=== PATIENT | male | born 1940 | race Hispanic/Latino ===

== ENCOUNTER 2018-10-05 16:57 | Emergency (ER) | payer MEDICARE ==
[~2018-10-05] VITALS: Ht 165.1 cm; Wt 90.7 kg
[2018-10-05] MEDS ORDERED: AVODART0.5 MG PO (17:14)
[2018-10-05] MEDS ORDERED: LOVASTATIN20 MG PO (17:14)
[2018-10-05] MEDS ORDERED: CILOSTAZOL100 MG PO (17:14)
[2018-10-05] MEDS ORDERED: NAPROXEN250 MG PO (17:14)
[2018-10-05] MEDS ORDERED: VASOTEC5 MG PO (17:14)
[2018-10-05] MEDS ORDERED: FLOMAX0.4 MG PO (17:14)
[2018-10-05] MEDS ORDERED: CEFTRIAXONE SOD 1 GM/NS 50 ML 50 ML IV ONE ×2 (17:30→17:32)
[2018-10-05] MEDS ORDERED: SODIUM CHLORIDE 0.9% 1000ML 1,000 ML IV SCH (17:30)
[2018-10-05] MEDS ORDERED: SODIUM CHLORIDE 0.9% 1000ML 1,000 ML ONE (17:32)
[2018-10-05 17:48] LABS: BASOPHILS % 0.5 % (0.0-1.0); EOSINOPHILS # (AUTO) 0.1 (0.0-0.4); EOSINOPHILS % 2.1 % (0.0-6.0); HEMATOCRIT 38.9 % (38.2-49.6); HEMOGLOBIN 13.2 g/dL (14.0-18.0); LYMPHOCYTES # (AUTO) 1.4 (1.0-3.2); LYMPHOCYTES % 20.8 % (18.0-39.1); MEAN CORPUSCULAR HEMOGLOBIN 28.9 pg (28-32); MEAN CORPUSCULAR HGB CONC 33.9 g/dL (31-35); MEAN CORPUSCULAR VOLUME 85.3 fL (81-99); MONOCYTES # (AUTO) 0.5 (0.2-0.8); MONOCYTES % 7.3 % (4.4-11.3); NEUTROPHILS # (AUTO) 4.6 (2.1-6.9); PLATELET COUNT 255 x10e3/uL (140-360); RED BLOOD COUNT 4.56 x10e6/uL (4.3-5.7); RED CELL DISTRIBUTION WIDTH 13.2 % (11.7-14.4)
[2018-10-05 17:54] LABS: BILIRUBIN,URINE NEGATIVE (NEGATIVE); CLARITY,URINE SL CLOUDY (CLEAR); COLOR,URINE YELLOW (YELLOW); KETONES,URINE NEGATIVE (NEGATIVE); LEUKOCYTE ESTERASE ,URINE NEGATIVE (NEGATIVE); NITRITE,URINE NEGATIVE (NEGATIVE); URINE UROBILINOGEN 0.2 mg/dL (0.2 - 1)
[2018-10-05] MEDS ORDERED: CIPROFLOXACIN500 MG PO (17:59)
[2018-10-05 18:01] LABS: ALBUMIN 3.6 g/dL (3.5-5.0); ALBUMIN/GLOBULIN RATIO 1.2 (0.8-2.0); CALCIUM 9.2 mg/dL (8.4-10.2); CREATININE, SERUM 1.24 mg/dL (0.72-1.25)
[2018-10-05 18:05] LABS: PROTEIN,URINE DIPSTICK 3+ (NEGATIVE)
[2018-10-05] MEDS ORDERED: METFORMIN HCL500 MG PO (18:26)
[2018-10-05] MEDS ORDERED: GLIMEPIRIDE4 MG PO (18:26)
[2018-10-05 18:31] LABS: BACTERIA,URINE FEW /HPF; EPITHELIAL CELLS,URINE FEW /LPF; RBC,URINE >50 /HPF (0-5); WBC,URINE (MAN) 0-5 /HPF (0-5)
[2018-10-05 18:36] VITALS: BP 118/75
== END 2018-10-05 18:46 | disposition home or self-care (01) ==
LOC: ER 16:57
DX: R30.0 Dysuria (principal); R31.9 Hematuria, unspecified; N41.0 Acute prostatitis; N41.9 Inflammatory disease of prostate, unspecified; E11.9 Type 2 diabetes mellitus without complications
CPT/HCPCS: 36415; 80053; 81001; 85025; 87086; 93005; 99283; J0696; J7030

== ENCOUNTER 2018-11-14 23:14 | Emergency (ER) | payer MEDICARE ==
[~2018-11-14] VITALS: Ht 165.1 cm; Wt 90.7 kg
[~2018-11-14 23:14] MED LIST: AVODART0.5 MG PO; CILOSTAZOL100 MG PO; CIPROFLOXACIN500 MG PO; FLOMAX0.4 MG PO; GLIMEPIRIDE4 MG PO; LOVASTATIN20 MG PO; METFORMIN HCL500 MG PO; NAPROXEN250 MG PO; VASOTEC5 MG PO
[2018-11-15 00:33] LABS: BILIRUBIN,URINE NEGATIVE (NEGATIVE); CLARITY,URINE CLOUDY (CLEAR); COLOR,URINE RED (YELLOW); KETONES,URINE NEGATIVE (NEGATIVE); LEUKOCYTE ESTERASE ,URINE TRACE (NEGATIVE); NITRITE,URINE POSITIVE (NEGATIVE); URINE UROBILINOGEN 1 mg/dL (0.2 - 1)
--- NOTE | 2018-11-15 00:37 | NUR ---
BLADDER SCAN PERFORMED, NO RETENTION FOUND, DR MATTSON NOTIFIED
[2018-11-15 00:41] LABS: BASOPHILS % 0.3 % (0.0-1.0); EOSINOPHILS # (AUTO) 0.2 (0.0-0.4); HEMATOCRIT 39.1 % (38.2-49.6); HEMOGLOBIN 13.1 g/dL (14.0-18.0); LYMPHOCYTES # (AUTO) 1.2 (1.0-3.2); LYMPHOCYTES % 17.1 % (18.0-39.1); MEAN CORPUSCULAR HEMOGLOBIN 29.1 pg (28-32); MEAN CORPUSCULAR HGB CONC 33.5 g/dL (31-35); MEAN CORPUSCULAR VOLUME 86.9 fL (81-99); MONOCYTES # (AUTO) 0.6 (0.2-0.8); NEUTROPHILS # (AUTO) 4.9 (2.1-6.9); NEUTROPHILS % 70.3 % (38.7-80.0); PLATELET COUNT 248 x10e3/uL (140-360); RED CELL DISTRIBUTION WIDTH 13.2 % (11.7-14.4)
[2018-11-15 00:43] LABS: PROTEIN,URINE DIPSTICK 3+ (NEGATIVE)
[2018-11-15 00:52] LABS: WBC,URINE (MAN) >50 /HPF (0-5)
[2018-11-15 00:53] LABS: BACTERIA,URINE MODERATE /HPF; EPITHELIAL CELLS,URINE FEW /LPF; RBC,URINE >50 /HPF (0-5)
[2018-11-15] MEDS ORDERED: CEFTRIAXONE SOD 1 GM/NS 50 ML 50 ML IV ONE (01:15)
[2018-11-15 01:19] LABS: ANION GAP 13.5 mmol/L (8-16); CALCIUM 9.5 mg/dL (8.4-10.2); CREATININE, SERUM 1.44 mg/dL (0.72-1.25); POTASSIUM 4.5 mmol/L (3.5-5.1)
== END 2018-11-15 01:49 | disposition home or self-care (01) ==
LOC: ER 23:14
DX: N30.91 Cystitis, unspecified with hematuria (principal); E11.9 Type 2 diabetes mellitus without complications; N40.0 Benign prostatic hyperplasia without lower urinary tract symptoms; Z79.84 Long term (current) use of oral hypoglycemic drugs
CPT/HCPCS: 36415; 80048; 81001; 85025; 87086; 99283; J0696

== ENCOUNTER 2018-12-13 18:59 | Emergency (ER) | payer MEDICARE ==
[~2018-12-13] VITALS: Ht 165.1 cm; Wt 90.7 kg
== END 2018-12-13 19:50 | disposition home or self-care (01) ==
LOC: ER 18:59
DX: R30.0 Dysuria (principal); E11.9 Type 2 diabetes mellitus without complications
CPT/HCPCS: 87086; 87186; 99282

== ENCOUNTER → 2018-12-29 | Day surgery (SDC) | payer MEDICARE ==
[~2018-12-29] MED LIST changes: +ASPIRIN81 MG PO; +B&O 60MG R/S 60 MG SUPP PR ONE; +CEFTRIAXONE SOD 1 GM/NS 50 ML 50 ML IV ONE; +DEXAMETHASONE SOD PHOS INJ 4 MG/ML VIAL ONE; +FENTANYL CITRATE/PF 100MCG/2 ML INJ ONE; +GENTAMICIN 80MG/NS 100 ML 100 ML IV ONE; +IOPAMIDOL 300MG/ML 50ML INFUS..BTL IV ONE; +LASIX20 MG PO; +LIDOCAINE HCL 2% LOCAL INJ 5 ML SDV VIAL INJ ONE; +ONDANSETRON HCL INJ 2MG/ML 2ML 2 MG/ML VIAL ONE; +PHENYLEPHRINE HCL 1% 10 MG/ML VIAL ONE; +PROPOFOL IV EMULSION 10 MG/ML 20 ML VIAL ONE; +SEVOFLURANE INHAL SOLN 250 ML PEN BTL ONE
[2018-12-29 13:09] LABS: BASOPHILS % 0.3 % (0.0-1.0); EOSINOPHILS # (AUTO) 0.1 (0.0-0.4); HEMATOCRIT 41.2 % (38.2-49.6); HEMOGLOBIN 14.2 g/dL (14.0-18.0); LYMPHOCYTES # (AUTO) 1.5 (1.0-3.2); LYMPHOCYTES % 24.1 % (18.0-39.1); MEAN CORPUSCULAR HEMOGLOBIN 29.6 pg (28-32); MEAN CORPUSCULAR HGB CONC 34.5 g/dL (31-35); MEAN CORPUSCULAR VOLUME 85.8 fL (81-99); MONOCYTES # (AUTO) 0.4 (0.2-0.8); MONOCYTES % 6.6 % (4.4-11.3); NEUTROPHILS # (AUTO) 4.1 (2.1-6.9); NEUTROPHILS % 67.7 % (38.7-80.0); PLATELET COUNT 248 x10e3/uL (140-360); RED CELL DISTRIBUTION WIDTH 13.7 % (11.7-14.4)
[2018-12-29 13:26] LABS: ANION GAP 13.1 mmol/L (8-16); BLOOD UREA NITROGEN 18 mg/dL (7-26); BUN/CREATININE RATIO 16 (6-25); CALCIUM 9.6 mg/dL (8.4-10.2); CARBON DIOXIDE 26 mmol/L (22-29); CHLORIDE 103 mmol/L (98-107); CREATININE, SERUM 1.11 mg/dL (0.72-1.25); EST GLOMERULAR FILTRATION RATE > 60 ML/MIN (60-); GLUCOSE 120 mg/dL (74-118); POTASSIUM 4.1 mmol/L (3.5-5.1); SODIUM 138 mmol/L (136-145)
[2018-12-29 17:40] VITALS: BP 149/76
--- NOTE | 2019-03-08 22:27 | Operative Report ---
DATE OF PROCEDURE: 12/29/2018 SURGEON: Leighton Oneill MD PREOPERATIVE DIAGNOSES: 1. Urinary tract infections. 2. Extensive cystolithiasis. POSTOPERATIVE DIAGNOSES: 1. Urinary tract infections. 2. Extensive cystolithiasis. OPERATIONS PERFORMED: 1. Cystourethroscopy with bilateral ureteral catheterization and retrograde ureteropyelography (separate procedure performed for the urinary tract infections). 2. Interpretation of retrograde ureteropyelography. 3. Supervision of fluoroscopy, no radiologist present. 4. Extensive cystolitholapaxy for a large amount of bladder stones well over 5 cm in total diameter. ANESTHESIA: General. COMPLICATIONS: None. CLINICAL SUMMARY: Blu Garcia is a 78-year-old man with recurrent urinary tract infections. Upon workup, he was found to have extensive cystolithiasis. He is brought to the operating room for the above procedures. He is aware of the risks of bleeding, infection, injury to adjacent structures, need for additional procedures and elected to proceed. OPERATIVE PROCEDURE IN DETAIL: Informed consent was verified. Blu Garcia was properly identified, taken to the operating room, placed on the cystoscopy table in supine position. Anesthesia was uneventfully begun. The patient was then carefully and gently repositioned in dorsal lithotomy position with all pressure points well padded. His genitalia were prepared and draped in usual sterile fashion. The 22.5-Upper Sorbian cystourethroscope continuous irrigation laser sheath with the visual obturator in place was atraumatically inserted in the patient's urethra. It was guided down the unremarkable urethra through the normal sphincteric region through the prostate bed, which was significant for extensive visually obstructing BPH, and into the patient's bladder where there were a dozen large stones throughout the bladder. There were no suspicious lesions. There were no tumors. There was some erythema noted in the bladder wall as one would expect with all this foreign body occupation. An 8-Upper Sorbian catheter was used to cannulate each ureter and retrograde ureteral pyelograms were performed. Interpretation of retrograde ureteropyelography: Contrast was instilled in retrograde fashion bilaterally. There were no tumors. No upper tract stones. No suspicious lesions. There was ureteral tortuosity present bilaterally. There was severe J hooking present bilaterally. Numerous filling defects were noted in the bladder as a result of the cystolithiasis. Interpretation of cystography: Contrast was instilled in retrograde fashion via the cystoscope. The bladder wall was trabeculated. There were numerous filling defects within the bladder, which corresponded to the stones. The bladder was cephalad to the symphysis pubis to a larger extent than normally would be expected due to the patient's large prostate pushing the bladder in cephalad direction care. The 1000 micron fiber was utilized to laser the stones. Extensive lasering was performed until all the stones were smaller size. These stone fragments were then evacuated out of the bladder. This was a rather extensive procedure for massive stone burden. Once all stone material was cleared, only fine sand remained and it should be passable. The cystoscope was withdrawn. Chris catheter was placed. A belladonna and opium suppository were placed revealing a large prostate that is smooth, nonfluctuant without any nodules. The patient was then uneventfully reversed from anesthesia and taken to recovery room in stable condition. There were no complications to the procedure. He tolerated the procedure well. Plans will be to return the patient to the operating room for transurethral resection of the prostate. Leighton Oneill MD [facility] /[id number] cc: Ed Cormier MD
== END | disposition home or self-care (01) ==
LOC: OR 12:13
PROVIDERS: ATTEND Urology
DX: N21.0 Calculus in bladder (principal); N39.0 Urinary tract infection, site not specified; N40.1 Benign prostatic hyperplasia with lower urinary tract symptoms; N13.8 Other obstructive and reflux uropathy; R39.14 Feeling of incomplete bladder emptying; R35.1 Nocturia; R39.12 Poor urinary stream; N28.1 Cyst of kidney, acquired; N41.1 Chronic prostatitis; I86.1 Scrotal varices; N43.3 Hydrocele, unspecified; E11.22 Type 2 diabetes mellitus with diabetic chronic kidney disease; I12.9 Hypertensive chronic kidney disease with stage 1 through stage 4 chronic kidney disease, or unspecified chronic kidney disease; N18.9 Chronic kidney disease, unspecified; E66.9 Obesity, unspecified; R80.9 Proteinuria, unspecified; I25.10 Atherosclerotic heart disease of native coronary artery without angina pectoris; K21.9 Gastro-esophageal reflux disease without esophagitis; Z79.84 Long term (current) use of oral hypoglycemic drugs; Z79.82 Long term (current) use of aspirin; Z68.30 Body mass index [BMI] 30.0-30.9, adult
CPT/HCPCS: 36415; 52005; 52318; 74420; 80048; 82948; 85025; 88300; C1758; J0696; J1100; J1580; J2001; J2370; J2405; J2704; J3010; Q9967

== ENCOUNTER 2019-12-30 08:31 | Inpatient (IN) | payer MEDICARE ==
[2019-12-25 17:34] LABS: BASOPHILS % 0.4 % (0.0-1.0); EOSINOPHILS # (AUTO) 0.1 (0.0-0.4); EOSINOPHILS % 1.3 % (0.0-6.0); HEMATOCRIT 38.4 % (38.2-49.6); LYMPHOCYTES % 25.2 % (18.0-39.1); MEAN CORPUSCULAR HEMOGLOBIN 29.4 pg (28-32); MEAN CORPUSCULAR HGB CONC 33.9 g/dL (31-35); MEAN CORPUSCULAR VOLUME 86.9 fL (81-99); MONOCYTES # (AUTO) 0.6 (0.2-0.8); MONOCYTES % 7.5 % (4.4-11.3); NEUTROPHILS # (AUTO) 5.2 (2.1-6.9); NEUTROPHILS % 65.2 % (38.7-80.0); PLATELET COUNT 250 x10e3/uL (140-360); RED BLOOD COUNT 4.42 x10e6/uL (4.3-5.7); RED CELL DISTRIBUTION WIDTH 13.6 % (11.7-14.4)
[2019-12-25 17:51] LABS: CALCIUM 9.2 mg/dL (8.4-10.2); CREATININE, SERUM 1.36 mg/dL (0.72-1.25)
--- NOTE | 2019-12-25 17:53 | Diagnostic Imaging Report ---
EXAMINATION: CHEST 2 VIEWS INDICATION: PRE OP COMPARISON: None FINDINGS: TUBES and LINES: None. LUNGS: Lungs are mildly hyperinflated. Bibasilar atelectasis. There is no evidence of pneumonia or pulmonary edema. PLEURA: No pleural effusion or pneumothorax. HEART AND MEDIASTINUM: The cardiomediastinal silhouette is unremarkable. BONES AND SOFT TISSUES: No acute osseous lesion. Soft tissues are unremarkable. UPPER ABDOMEN: No free air under the diaphragm. IMPRESSION: Mild bilateral hyperinflation may represent COPD. No acute thoracic abnormality. Signed by: Dr. Ryland Huitron M.D. on 12/25/2019 5:50 PM
[~2019-12-30] VITALS: Ht 170.2 cm; Wt 74.8 kg
[~2019-12-30 08:31] MED LIST changes: -B&O 60MG R/S 60 MG SUPP PR ONE; -CEFTRIAXONE SOD 1 GM/NS 50 ML 50 ML IV ONE; -DEXAMETHASONE SOD PHOS INJ 4 MG/ML VIAL ONE; -FENTANYL CITRATE/PF 100MCG/2 ML INJ ONE; -GENTAMICIN 80MG/NS 100 ML 100 ML IV ONE; +GLIMEPIRIDE2 MG PO; +GLIPIZIDE5 MG PO; -IOPAMIDOL 300MG/ML 50ML INFUS..BTL IV ONE; -LIDOCAINE HCL 2% LOCAL INJ 5 ML SDV VIAL INJ ONE; -ONDANSETRON HCL INJ 2MG/ML 2ML 2 MG/ML VIAL ONE; -PHENYLEPHRINE HCL 1% 10 MG/ML VIAL ONE; -PROPOFOL IV EMULSION 10 MG/ML 20 ML VIAL ONE; -SEVOFLURANE INHAL SOLN 250 ML PEN BTL ONE; +[UNRECOGNIZED DRUG - REMARK] PO
[2019-12-30] MEDS ORDERED: CEFTRIAXONE SOD 1 GM/NS 50 ML 50 ML IV ONE (08:46)
[2019-12-30] MEDS ORDERED: GENTAMICIN 80MG/NS 100 ML 200 ML IV ONE (08:47)
[2019-12-30] MEDS ORDERED: SODIUM CHLORIDE 0.9% 1000ML 1,000 ML ONE (08:50)
[2019-12-30] MEDS ORDERED: FINASTERIDE5 MG PO (09:10)
[2019-12-30] MEDS ORDERED: FLOMAX0.4 MG PO (09:10)
[2019-12-30] MEDS ORDERED: ASPIRIN ENTERI325 MG PO (09:10)
[2019-12-30] MEDS ORDERED: GLIMEPIRIDE2 MG PO (09:10)
[2019-12-30] MEDS ORDERED: CILOSTAZOL100 MG PO (09:10)
[2019-12-30] MEDS ORDERED: ASPIRIN EC81 MG PO (09:10)
[2019-12-30] MEDS ORDERED: B&O 60MG R/S 60 MG SUPP PR ONE (10:30)
[2019-12-30] MEDS ORDERED: IOPAMIDOL 300MG/ML 50ML INFUS..BTL IV ONE (10:30)
[2019-12-30] MEDS ORDERED: PHENAZOPYRIDINE HCL 100 MG TAB PO PRN (11:30)
[2019-12-30] MEDS ORDERED: B&O 60MG R/S 60 MG SUPP PR PRN (11:30)
[2019-12-30] MEDS ORDERED: ONDANSETRON HCL INJ 2MG/ML 2ML 2 MG/ML VIAL IV PRN (11:30)
[2019-12-30] MEDS ORDERED: ACETAMINOPHEN/CODEINE 300MG - 30MG TAB PO PRN (11:30)
[2019-12-30] MEDS ORDERED: DIPHENHYDRAMINE HCL 25 MG CAP PO PRN (11:30)
[2019-12-30] MEDS ORDERED: PROPOFOL IV EMULSION 10 MG/ML 20 ML VIAL ONE (13:08)
[2019-12-30] MEDS ORDERED: EPHEDRINE SULFATE INJ 50 MG/ML VIAL ONE (13:08)
[2019-12-30] MEDS ORDERED: ONDANSETRON HCL INJ 2MG/ML 2ML 2 MG/ML VIAL ONE (13:08)
[2019-12-30] MEDS ORDERED: DEXAMETHASONE SOD PHOS INJ 4 MG/ML VIAL ONE (13:08)
[2019-12-30] MEDS ORDERED: SEVOFLURANE INHAL SOLN 250 ML PEN BTL ONE (13:08)
[2019-12-30] MEDS ORDERED: LIDOCAINE HCL 2% LOCAL INJ 5 ML SDV VIAL INJ ONE (13:08)
[2019-12-30] MEDS ORDERED: MIDAZOLAM HCL 2 MG/2 ML VIAL ONE (13:20)
[2019-12-30] MEDS ORDERED: FENTANYL CITRATE/PF 100MCG/2 ML INJ ONE (13:20)
--- OUTSIDE RECORDS SUMMARY | 2019-12-30 14:10 | XMS REPORT | Continuity of Care Document ---
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 Allergies, Adverse Reactions, Alerts This patient has no known allergies or adverse reactions. Medications Ordered Medication Name Filled Medication Name Start Date Stop Da te Current Medication? Ordering Clinician Indication Dosage Frequency Signature (SIG) Comments Components Source Cilostazol 100 Mg Tablet Cilostazol 100 Mg Tablet Yes 100 Twice A Day [facility] Ciprofloxacin Hcl 500 Mg Tablet Ciprofloxacin Hcl 500 Mg Tablet Yes 500 Twice A Day [facility] Dutasteride (Avodart) 0.5 Mg Capsule Dutasteride (Avodart) 0.5 Mg C apsule Yes .5 Daily [facility] Enalapril Maleate (Vasotec) 5 Mg Tab Enalapril Maleate (Vasotec) 5 Mg Tab Yes 5 Daily [facility] Glimepiride 4 Mg Tablet Glimepiride 4 Mg Tablet Yes 4 Twice A Day [facility] Lovastatin 20 Mg Tablet Lovastatin 20 Mg Tablet Yes 20 Bedtime [facility] Metformin Hcl 500 Mg Tablet Metformin Hcl 500 Mg Tablet Yes [address] [facility] Naproxen 250 Mg Tablet Naproxen 250 Mg Tablet Yes 250 Every 4 Hours [facility] Tamsulosin Hcl (Flomax*) 0.4 Mg Cap Tamsulosin Hcl (Flomax*) 0.4 Mg C ap Yes .4 Daily [facility] Procedures This patient has no known procedures. Encounters Start Date/Time End Date/Time Encounter Type Ad[facility] Encounter ID Source 2018-12-13 18:59:00 2018-12-13 19:50:00 Departed Emergency Room [facility] [id number] [facility] 2018-11-14 23:14:00 2018-11-15 01:49:00 Departed Emergency Room [facility] [id number] [facility] 2018-10-05 16:57:00 2018-10-05 18:46:00 Departed Emergency Room [facility] [id number] [facility] Results Test Description Test Time Test Comments Results Result Comments Source CHEST 2 VIEWS 2019-12-25 17:49:00 [place] [address] Patient Name: YIFAN YAP MR #: [id number] : 1940 Age/Sex: 79/M Req #: [id number] Adm Physician: Ordered by: BEV BRYANT MD Report #: [id number] Location: OR Room/Bed: Procedure: [id number] DX/CHEST 2 VIEWS Exam Date: Exam Time: REPORT STATUS: Signed EXAMINATION: CHEST 2 VIEWS INDICATION: PRE OP COMPARISON: None FINDINGS: TUBES and LINES: None. LUNGS: Lungs are mildly hyperinflated. Bibasilar atelectasis. There is no evidence of pneumonia or pulmonary edema. PLEURA: No pleural effusion or pneumothorax. HEART AND MEDIASTINUM: The cardiomediastinal silhouette is unremarkable. BONES AND SOFT TISSUES: No acute osseous lesion. Soft tissues are unremarkable. UPPER ABDOMEN: No free air under the diaphragm. IMPRESSION: Mild bilateral hyperinflation may represent COPD. No acute thoracic abnormality. Signed by: Dr. Ryland Fong M.D. on 12/25/2019 5:50 PM Dictated By: ADRIANNA FONG MD, MD 48 Transcribed By: ABENA on 12/25/191749 COPY TO: BEV BRYANT MD Sodium Level 2018-11-15 01:26:00 Test Item Sodium Level (test code = 2951-2) 139 136-145 [facility] Wttxz7048-07-82 01:26:00* Test Item Value Reference Range Interpretation Comments Potassium Level (test code = 2823-3) 4.5 3.5-5.1 [facility] TexasChloride Hfqzt6652-24-26 01:26:00* Test Item Value Reference Range Interpretation Comments Chloride Level (test code = 2075-0) 104 98-107 [facility] TexasCarbon Dioxide Ykjee6053-08-92 01:26:00* Test Item Value Reference Range Interpretation Comments Carbon Dioxide Level (test code = 2028-9) 26 22-29 [facility] TexasAnion Obf2950-57-51 01:26:00* Test Item Value Reference Range Interpretation Comments Anion Gap (test code = 95859-3) 13.5 8-16 [facility] Texas[facility] Urea Tqsmmkls0268-10-76 01:26:00* Test Item Value Reference Range Interpretation Comments Blood Urea Nitrogen (test code = 3094-0) 25 7-26 [facility] TexasCreatinine2019-08-24 01:26:00* Test Item Value Reference Range Interpretation Comments Creatinine (test code = 2160-0) 1.44 0.72-1.25 H [facility] TexasBUN/Creatinine Xzchm4127-59-40 01:26:00* Test Item Value Reference Range Interpretation Comments BUN/Creatinine Ratio (test code = 3097-3) 17 6-25 [facility] TexasEstimat Glomerular Filtration Rate 2018-11-15 01:26:00* Test Item Value Reference Range Interpretation Comments Estimat Glomerular Filtration Rate (test code = 831136053) 47 >60 L Ranges were taken from the National Kidney Disease Education Program and the [facility] Kid[facility] Foundation literature.Reference ranges:60 or greater: Uqpcvv55-05 ( for 3 consecutive months): Chronic kidney disease 15 or less: Kidney failureWoman's Hospital of TexasGlucose Vehdz6366-36-93 01:26:00* Test Item Value Reference Range Interpretation Comments Glucose Level (test code = PGY9047) 219 74-118 H [facility] TexasCalcium Lolgg8239-34-26 01:26:00* Test Item Value Reference Range Interpretation Comments Calcium Level (test code = 06497-2) 9.5 8.4-10.2 [facility] Ofvpo7844-86-14 01:26:00* Test Item Value Reference Range Interpretation Comments Sodium Level (test code = 2951-2) 139 136-145 [facility]Pot[facility] Zozax5932-69-94 01:26:00* Test Item Value Reference Range Interpretation Comments Potassium Level (test code = 2823-3) 4.5 3.5-5.1 [facility] TexasChloride Muvdk1600-11-66 01:26:00* Test Item Value Reference Range Interpretation Comments Chloride Level (test code = 2075-0) 104 98-107 [facility] TexasCarbon Dioxide Iydas5350-48-75 01:26:00* Test Item Value Reference Range Interpretation Comments Carbon Dioxide Level (test code = 2028-9) 26 22-29 [facility] TexasAnion Trr2014-85-04 01:26:00* Test Item Value Reference Range Interpretation Comments Anion Gap (test code = 49193-8) 13.5 8-16 [facility] TexasBlood Urea Fzrjnteo1452-76-20 01:26:00* Test Item Value Reference Range Interpretation Comments Blood Urea Nitrogen (test code = 3094-0) 25 7-26 [facility] TexasCreatinine2019-08-24 01:26:00* Test Item Value Reference Range Interpretation Comments Creatinine (test code = 2160-0) 1.44 0.72-1.25 H [facility] TexasBUN/Creatinine Uqqdj4250-14-47 01:26:00* Test Item Value Reference Range Interpretation Comments BUN/Creatinine Ratio (test code = 3097-3) 17 6-25 [facility] Texas[facility] Glomerular Filtration Rate 2018-11-15 01:26:00* Test Item Value Reference Range Interpretation Comments Estimat Glomerular Filtration Rate (test code = 915535420) 47 >60 L Ranges were taken from the National Kidney Disease Education Program and the [facility] Kidney Foundation literature.Reference ranges:60 or greater: Fovqkx75-58 ( for 3 consecutive months): Chronic kidney disease 15 or less: Kidney failureWoman's Hospital of TexasGlucose Bjvcw8260-60-36 01:26:00* Test Item Value Reference Range Interpretation Comments Glucose Level (test code = KSU4288) 219 74-118 H [facility] TexasCalcium Emipw2763-61-25 01:26:00* Test Item Value Reference Range Interpretation Comments Calcium Level (test code = 07011-6) 9.5 8.4-10.2 [facility] TexasUrine MBX8061-85-99 00:53:00* Test Item Value Reference Range Interpretation Comments Urine WBC (test code = 5821-4) >50 0-5 H [facility] TexasUrine TEO6145-42-09 00:53:00* Test Item Value Reference Range Interpretation Comments Urine RBC (test code = 90776-3) >50 0-5 H [facility] TexasU[facility] Cwocgbdi1317-11-91 00:53:00* Test Item Value Reference Range Interpretation Comments Urine Bacteria (test code = 29018-1) MODERATE NONE H [facility] TexasUrine Epithelial Eeymr6130-54-35 00:53:00 * Test Item Value Reference Range Interpretation Comments Urine Epithelial Cells (test code = 34606-3) FEW NONE [facility] TexasU[facility] YKM2309-40-24 00:53:00* Test Item Value Reference Range Interpretation Comments Urine WBC (test code = 5821-4) >50 0-5 H [facility] TexasU[facility] INL9646-28-90 00:53:00* Test Item Value Reference Range Interpretation Comments Urine RBC (test code = 22635-5) >50 0-5 H [facility] TexasU[facility] Giernrwq4975-42-69 00:53:00* Test Item Value Reference Range Interpretation Comments Urine Bacteria (test code = 18989-0) MODERATE NONE [facility] Yxajf5802-16-88 00:53:00 * Test Item Value Reference Range Interpretation Comments Urine Epithelial Cells (test code = 70072-7) FEW NONE [facility] TexasU[facility] Upele0259-15-60 00:43:00* Test Item Value Reference Range Interpretation Comments Urine Color (test code = 5778-6) RED YELLOW H [facility] TexasUrine Lmnecai3445-37-15 00:43:00* Test Item Value Reference Range Interpretation Comments Urine Clarity (test code = 46743-6) CLOUDY CLEAR H [facility] TexasU[facility] Specific Cjyaejq4101-06-06 00:43:00 * Test Item Value Reference Range Interpretation Comments Urine Specific [place] (test code = 5811-5) 1.025 1.010-1.02 5 [facility] TexasU[facility] xC5038-02-26 00:43:00* Test Item Value Reference Range Interpretation Comments Urine pH (test code = 99999-9) 5 5-7 [facility] Leukocyte Ttyubyfg3057-40-84 00:43:00* Test Item Value Reference Range Interpretation Comments Urine Leukocyte Esterase (test code = 14616-9) TRACE NEGATIV E H [facility] TexasUrine Hccuwhz1174-88-43 00:43:00* Test Item Value Reference Range Interpretation Comments Urine Nitrite (test code = 66088-7) POSITIVE NEGATIVE [facility] Igbvast6094-59-31 00:43:00* Test Item Value Reference Range Interpretation Comments Urine Protein (test code = 26889-7) 3+ NEGATIVE [facility] Glucose (UA)2018-11-15 00:43:00* Test Item Value Reference Range Interpretation Comments Urine Glucose (UA) (test code = 91224-7) 3+ NEGATIVE [facility] Tvswopm2119-53-81 00:43:00* Test Item Value Reference Range Interpretation Comments Urine Ketones (test code = 89286-7) NEGATIVE NEGATIVE [facility] Pcubtgxxeuby7967-94-40 00:43:00* Test Item Value Reference Range Interpretation Comments Urine Urobilinogen (test code = 29046-4) 1 0.2-1 [facility] Lquvoqszg6068-97-73 00:43:00* Test Item Value Reference Range Interpretation Comments Urine Bilirubin (test code = 1977-8) NEGATIVE NEGATIVE [facility] Qugjw0419-05-80 00:43:00* Test Item Value Reference Range Interpretation Comments Urine Blood (test code = 87583-6) 3+ NEGATIVE [facility] TexasU[facility] Hkwoe7472-17-51 00:43:00* Test Item Value Reference Range Interpretation Comments Urine Color (test code = 5778-6) RED YELLOW [facility] Nxrrvcx1951-02-34 00:43:00* Test Item Value Reference Range Interpretation Comments Urine Clarity (test code = 11951-7) CLOUDY CLEAR [facility] Specific Dsqzowp0021-74-67 00:43:00 * Test Item Value Reference Range Interpretation Comments Urine Specific [place] (test code = 5811-5) 1.025 1.010-1.02 5 [facility] tK7262-40-37 00:43:00* Test Item Value Reference Range Interpretation Comments Urine pH (test code = 32011-9) 5 5-7 [facility] Leukocyte Aswjlwhw2867-02-04 00:43:00* Test Item Value Reference Range Interpretation Comments Urine Leukocyte Esterase (test code = 10238-2) TRACE NEGATIV E [facility] Xyyfbuf5489-31-67 00:43:00* Test Item Value Reference Range Interpretation Comments Urine Nitrite (test code = 96123-1) POSITIVE NEGATIVE [facility] Fecpsgy6769-47-25 00:43:00* Test Item Value Reference Range Interpretation Comments Urine Protein (test code = 58866-4) 3+ NEGATIVE H [facility] TexasU[facility] Glucose (UA)2018-11-15 00:43:00* Test Item Value Reference Range Interpretation Comments Urine Glucose (UA) (test code = 81392-5) 3+ NEGATIVE [facility] TexasU[facility] Bzyqvxy5586-18-13 00:43:00* Test Item Value Reference Range Interpretation Comments Urine Ketones (test code = 09224-4) NEGATIVE NEGATIVE [facility] TexasU[facility] Cejxtpikdgzu9168-76-91 00:43:00* Test Item Value Reference Range Interpretation Comments Urine Urobilinogen (test code = 62010-6) 1 0.2-1 [facility] TexasU[facility] Fuhzxjdst9200-47-07 00:43:00* Test Item Value Reference Range Interpretation Comments Urine Bilirubin (test code = 1977-8) NEGATIVE NEGATIVE [facility] Susqx1475-44-13 00:43:00* Test Item Value Reference Range Interpretation Comments Urine Blood (test code = 99413-9) 3+ NEGATIVE [facility] TexasWhite Blood Fegmm6134-15-17 00:42:00* Test Item Value Reference Range Interpretation Comments White Blood Count (test code = 6690-2) 6.97 4.8-10.8 [facility] TexasRed Blood Zinju4606-50-45 00:42:00* Test Item Value Reference Range Interpretation Comments Red Blood Count (test code = 789-8) 4.50 4.3-5.7 [facility] TexasHemoglobin2019-08-24 00:42:00* Test Item Value Reference Range Interpretation Comments Hemoglobin (test code = 95568-9) 13.1 14.0-18.0 L [facility] TexasHematocrit2019-08-24 00:42:00* Test Item Value Reference Range Interpretation Comments Hematocrit (test code = 4544-3) 39.1 38.2-49.6 [facility] TexasMean Corpuscular Fuwilr5163-46-44 00:42:00* Test Item Value Reference Range Interpretation Comments Mean Corpuscular Volume (test code = 787-2) 86.9 81-99 [facility] TexasMean Corpuscular Vfrnthselb5497-22-39 00:42:00* Test Item Value Reference Range Interpretation Comments Mean Corpuscular Hemoglobin (test code = 785-6) 29.1 28-32 [facility] TexasMean Corpuscular Hemoglobin Concent 2018-11-15 00:42:00* Test Item Value Reference Range Interpretation Comments Mean Corpuscular Hemoglobin Concent (test code = 786-4) 33.5 31-35 [facility] TexasRed Cell Distribution Nqkvr8202-45-91 00:42:00* Test Item Value Reference Range Interpretation Comments Red Cell Distribution Width (test code = 08076-3) 13.2 11.7 -14.4 [facility] TexasPlatelet Ypyce6447-92-54 00:42:00* Test Item Value Reference Range Interpretation Comments Platelet Count (test code = 777-3) 248 140-360 [facility] TexasNeutrophils (%) (Auto)2018-11-15 00:42:00 * Test Item Value Reference Range Interpretation Comments Neutrophils (%) (Auto) (test code = 57924-1) 70.3 38.7-80.0 [facility] TexasLymphocytes (%) (Auto)2018-11-15 00:42:00 * Test Item Value Reference Range Interpretation Comments Lymphocytes (%) (Auto) (test code = 736-9) 17.1 18.0-39.1 L [facility] TexasMonocytes (%) (Auto)2018-11-15 00:42:00* Test Item Value Reference Range Interpretation Comments Monocytes (%) (Auto) (test code = 5905-5) 9.0 4.4-11.3 [facility] TexasEosinophils (%) (Auto)2018-11-15 00:42:00 * Test Item Value Reference Range Interpretation Comments Eosinophils (%) (Auto) (test code = 713-8) 3.0 0.0-6.0 [facility] TexasBasophils (%) (Auto)2018-11-15 00:42:00* Test Item Value Reference Range Interpretation Comments Basophils (%) (Auto) (test code = 706-2) 0.3 0.0-1.0 [facility] TexasIM GRANULOCYTES %2018-11-15 00:42:00* Test Item Value Reference Range Interpretation Comments IM GRANULOCYTES % (test code = IM GRANULOCYTES %) 0.3 0.0- 1.0 [facility] TexasNeutrophils # (Auto)2018-11-15 00:42:00* Test Item Value Reference Range Interpretation Comments Neutrophils # (Auto) (test code = 751-8) 4.9 2.1-6.9 [facility] TexasLymphocytes # (Auto)2018-11-15 00:42:00* Test Item Value Reference Range Interpretation Comments Lymphocytes # (Auto) (test code = 64409-6) 1.2 1.0-3.2 [facility] TexasMonocytes # (Auto)2018-11-15 00:42:00* Test Item Value Reference Range Interpretation Comments Monocytes # (Auto) (test code = 742-7) 0.6 0.2-0.8 [facility] TexasEosinophils # (Auto)2018-11-15 00:42:00* Test Item Value Reference Range Interpretation Comments Eosinophils # (Auto) (test code = 711-2) 0.2 0.0-0.4 [facility] TexasBasophils # (Auto)2018-11-15 00:42:00* Test Item Value Reference Range Interpretation Comments Basophils # (Auto) (test code = 704-7) 0.0 0.0-0.1 [facility] TexasAbsolute Immature Granulocyte (auto 2018-11-15 00:42:00* Test Item Value Reference Range Interpretation Comments Absolute Immature Granulocyte (auto (kaden t code = Absolute Immature Granulocyte (auto) 0.02 0-0.1 [facility] TexasWhite Blood Zkhum7057-88-46 00:42:00* Test Item Value Reference Range Interpretation Comments White Blood Count (test code = 6690-2) 6.97 4.8-10.8 [facility] TexasRed Blood Tbfhv5622-27-08 00:42:00* Test Item Value Reference Range Interpretation Comments Red Blood Count (test code = 789-8) 4.50 4.3-5.7 [facility] TexasHemoglobin2019-08-24 00:42:00* Test Item Value Reference Range Interpretation Comments Hemoglobin (test code = 13486-2) 13.1 14.0-18.0 L [facility] TexasHematocrit2019-08-24 00:42:00* Test Item Value Reference Range Interpretation Comments Hematocrit (test code = 4544-3) 39.1 38.2-49.6 [facility] TexasMean Corpuscular Gdvjvv9122-36-11 00:42:00* Test Item Value Reference Range Interpretation Comments Mean Corpuscular Volume (test code = 787-2) 86.9 81-99 [facility] TexasMean Corpuscular Obkjcpcmfx7846-82-43 00:42:00* Test Item Value Reference Range Interpretation Comments Mean Corpuscular Hemoglobin (test code = 785-6) 29.1 28-32 [facility] Corp[facility] Hemoglobin Concent 2018-11-15 00:42:00* Test Item Value Reference Range Interpretation Comments Mean Corpuscular Hemoglobin Concent (test code = 786-4) 33.5 31-35 [facility] TexasRed Cell Distribution Wyxnz1662-91-06 00:42:00* Test Item Value Reference Range Interpretation Comments Red Cell Distribution Width (test code = 27060-6) 13.2 11.7 -14.4 [facility] TexasPlatelet Cyymg9488-53-86 00:42:00* Test Item Value Reference Range Interpretation Comments Platelet Count (test code = 777-3) 248 140-360 [facility] TexasNeutrophils (%) (Auto)2018-11-15 00:42:00 * Test Item Value Reference Range Interpretation Comments Neutrophils (%) (Auto) (test code = 72738-4) 70.3 38.7-80.0 [facility] TexasLymphocytes (%) (Auto)2018-11-15 00:42:00 * Test Item Value Reference Range Interpretation Comments Lymphocytes (%) (Auto) (test code = 736-9) 17.1 18.0-39.1 L [facility] TexasMonocytes (%) (Auto)2018-11-15 00:42:00* Test Item Value Reference Range Interpretation Comments Monocytes (%) (Auto) (test code = 5905-5) 9.0 4.4-11.3 [facility] TexasEosinophils (%) (Auto)2018-11-15 00:42:00 * Test Item Value Reference Range Interpretation Comments Eosinophils (%) (Auto) (test code = 713-8) 3.0 0.0-6.0 [facility] TexasBasophils (%) (Auto)2018-11-15 00:42:00* Test Item Value Reference Range Interpretation Comments Basophils (%) (Auto) (test code = 706-2) 0.3 0.0-1.0 [facility] TexasIM GRANULOCYTES %2018-11-15 00:42:00* Test Item Value Reference Range Interpretation Comments IM GRANULOCYTES % (test code = IM GRANULOCYTES %) 0.3 0.0- 1.0 [facility] TexasNeutrophils # (Auto)2018-11-15 00:42:00* Test Item Value Reference Range Interpretation Comments Neutrophils # (Auto) (test code = 751-8) 4.9 2.1-6.9 [facility] TexasLymphocytes # (Auto)2018-11-15 00:42:00* Test Item Value Reference Range Interpretation Comments Lymphocytes # (Auto) (test code = 87368-4) 1.2 1.0-3.2 [facility] TexasMonocytes # (Auto)2018-11-15 00:42:00* Test Item Value Reference Range Interpretation Comments Monocytes # (Auto) (test code = 742-7) 0.6 0.2-0.8 [facility] TexasEosinophils # (Auto)2018-11-15 00:42:00* Test Item Value Reference Range Interpretation Comments Eosinophils # (Auto) (test code = 711-2) 0.2 0.0-0.4 [facility] TexasBasophils # (Auto)2018-11-15 00:42:00* Test Item Value Reference Range Interpretation Comments Basophils # (Auto) (test code = 704-7) 0.0 0.0-0.1 [facility] TexasAbsolute Immature Granulocyte (auto 2018-11-15 00:42:00* Test Item Value Reference Range Interpretation Comments Absolute Immature Granulocyte (auto (kaden t code = Absolute Immature Granulocyte (auto) 0.02 0-0.1 [facility] TexasUrine CVB5681-35-74 18:32:00* Test Item Value Reference Range Interpretation Comments Urine WBC (test code = 5821-4) 0-5 0-5 [facility] TexasUrine GCI4781-94-47 18:32:00* Test Item Value Reference Range Interpretation Comments Urine RBC (test code = 29625-9) >50 0-5 H [facility] TexasUrine Ymgmnsaw5406-20-98 18:32:00* Test Item Value Reference Range Interpretation Comments Urine Bacteria (test code = 22797-0) FEW NONE [facility] TexasUrine Epithelial Zulpa8730-08-75 18:32:00 * Test Item Value Reference Range Interpretation Comments Urine Epithelial Cells (test code = 00438-7) FEW NONE [facility] Ylufn6031-25-22 18:12:00* Test Item Value Reference Range Interpretation Comments Sodium Level (test code = 2951-2) 137 136-145 [facility] TexasPotassium Mjwfs0302-09-64 18:12:00* Test Item Value Reference Range Interpretation Comments Potassium Level (test code = 2823-3) 4.0 3.5-5.1 [facility] TexasChloride Xlguv9752-76-85 18:12:00* Test Item Value Reference Range Interpretation Comments Chloride Level (test code = 2075-0) 104 98-107 [facility] TexasCarbon Dioxide Uowtv0826-76-03 18:12:00* Test Item Value Reference Range Interpretation Comments Carbon Dioxide Level (test code = 2028-9) 22 22-29 [facility] TexasAnion Eaf6994-92-35 18:12:00* Test Item Value Reference Range Interpretation Comments Anion Gap (test code = 45456-3) 15.0 8-16 [facility] TexasBlood Urea Ohsisfpf4973-54-16 18:12:00* Test Item Value Reference Range Interpretation Comments Blood Urea Nitrogen (test code = 3094-0) 25 7-26 [facility] TexasCreatinine2019-07-14 18:12:00* Test Item Value Reference Range Interpretation Comments Creatinine (test code = 2160-0) 1.24 0.72-1.25 [facility] TexasBUN/Creatinine Ffhjf9499-64-43 18:12:00* Test Item Value Reference Range Interpretation Comments BUN/Creatinine Ratio (test code = 3097-3) 20 6-25 [facility] TexasEstimat Glomerular Filtration Rate 2018-10-05 18:12:00* Test Item Value Reference Range Interpretation Comments Estimat Glomerular Filtration Rate (test code = 656198970) 56 >60 L Ranges were taken from the National Kidney Disease Education Program and the [facility] Kidney Foundation literature.Reference ranges:60 or greater: Tyibqw93-35 ( for 3 consecutive months): Chronic kidney disease 15 or less: Kidney failureWoman's Hospital of TexasGlucose Xduos6065-75-20 18:12:00* Test Item Value Reference Range Interpretation Comments Glucose Level (test code = EHB0292) 90 74-118 [facility] TexasCalcium Hjzrk1817-16-59 18:12:00* Test Item Value Reference Range Interpretation Comments Calcium Level (test code = 15288-2) 9.2 8.4-10.2 [facility] TexasTotal Zmuqydrdb9498-66-55 18:12:00* Test Item Value Reference Range Interpretation Comments Total Bilirubin (test code = 1975-2) 0.3 0.2-1.2 [facility] TexasAspartate Amino Transf (AST/SGOT) 2018-10-05 18:12:00* Test Item Value Reference Range Interpretation Comments Aspartate Amino Transf (AST/SGOT) (test code = Aspartate Amino Transf (AST/SGOT)) 11 34 [facility] TexasAlanine Aminotransferase (ALT/SGPT) 2018-10-05 18:12:00* Test Item Value Reference Range Interpretation Comments Alanine Aminotransferase (ALT/SGPT) (test code = 1742-6) 10 0-55 [facility] [id number] 18:12:00* Test Item Value Reference Range Interpretation Comments Total Protein (test code = 2885-2) 6.7 6.5-8.1 [facility]Albumin2019-07[facility]14 18:12:00* Test Item Value Reference Range Interpretation Comments Albumin (test code = 1751-7) 3.6 3.5-5.0 [facility]Globulin2019-07-14 18:12:00* Test Item Value Reference Range Interpretation Comments Globulin (test code = 76328-2) 3.1 2.3-3.5 [facility]Album[facility]/Globulin [id number] 18:12:00 * Test Item Value Reference Range Interpretation Comments Albumin/Globulin Ratio (test code = 1759-0) 1.2 0.8-2.0 [facility]Alkaline [id number] 18:12:00* Test Item Value Reference Range Interpretation Comments Alkaline Phosphatase (test code = 6768-6) 65 40-150 [facility] [id number] 18:12:00* Test Item Value Reference Range Interpretation Comments Total Bilirubin (test code = 1975-2) 0.3 0.2-1.2 [facility] Amino Transf (AST/SGOT) 2018-10-05 18:12:00* Test Item Value Reference Range Interpretation Comments Aspartate Amino Transf (AST/SGOT) (test code = Aspartate Amino Transf (AST/SGOT)) 11 34 [facility]Alanine Aminotransferase (ALT/SGPT) 2018-10-05 18:12:00* Test Item Value Reference Range Interpretation Comments Alanine Aminotransferase (ALT/SGPT) (test code = 1742-6) 10 0-55 [facility] [id number] 18:12:00* Test Item Value Reference Range Interpretation Comments Total Protein (test code = 2885-2) 6.7 6.5-8.1 [facility]Album[facility]2019-07-14 18:12:00* Test Item Value Reference Range Interpretation Comments Albumin (test code = 1751-7) 3.6 3.5-5.0 [facility]Gl[facility]ulin2019-07-14 18:12:00* Test Item Value Reference Range Interpretation Comments Globulin (test code = 94521-6) 3.1 2.3-3.5 [facility]Album[facility]/Globulin [id number] 18:12:00 * Test Item Value Reference Range Interpretation Comments Albumin/Globulin Ratio (test code = 1759-0) 1.2 0.8-2.0 [facility]Al[facility] Qrmpfgrpklm5590-23-33 18:12:00* Test Item Value Reference Range Interpretation Comments Alkaline Phosphatase (test code = 6768-6) 65 40-150 [facility] Bnmygghog7842-10-79 18:12:00* Test Item Value Reference Range Interpretation Comments Total Bilirubin (test code = 1975-2) 0.3 0.2-1.2 [facility]Asp[facility] Amino Transf (AST/SGOT) 2018-10-05 18:12:00* Test Item Value Reference Range Interpretation Comments Aspartate Amino Transf (AST/SGOT) (test code = Aspartate Amino Transf (AST/SGOT)) 11 5-34 [facility] Aminotransferase (ALT/SGPT) 2018-10-05 18:12:00* Test Item Value Reference Range Interpretation Comments Alanine Aminotransferase (ALT/SGPT) (test code = 1742-6) 10 0-55 [facility] Kfezmvw2228-22-59 18:12:00* Test Item Value Reference Range Interpretation Comments Total Protein (test code = 2885-2) 6.7 6.5-8.1 [facility]Albumin2019-07-14 18:12:00* Test Item Value Reference Range Interpretation Comments Albumin (test code = 1751-7) 3.6 3.5-5.0 [facility]ulin2019-07-14 18:12:00* Test Item Value Reference Range Interpretation Comments Globulin (test code = 02683-6) 3.1 2.3-3.5 [facility]Album[facility]/Globulin [id number] 18:12:00 * Test Item Value Reference Range Interpretation Comments Albumin/Globulin Ratio (test code = 1759-0) 1.2 0.8-2.0 [facility] Hivbpsrsryp8423-65-36 18:12:00* Test Item Value Reference Range Interpretation Comments Alkaline Phosphatase (test code = 6768-6) 65 40-150 [facility] Givzl8678-32-02 18:05:00* Test Item Value Reference Range Interpretation Comments Urine Color (test code = 5778-6) YELLOW YELLOW [facility] Sytzumd3430-52-85 18:05:00* Test Item Value Reference Range Interpretation Comments Urine Clarity (test code = 55170-8) SL CLOUDY CLEAR H [facility] Specific Mrbfmhv7468-65-46 18:05:00 * Test Item Value Reference Range Interpretation Comments Urine Specific [place] (test code = 5811-5) >=1.030 1.010-1.02 5 [facility] [id number] 18:05:00* Test Item Value Reference Range Interpretation Comments Urine pH (test code = 66958-5) 5.5 5-7 [facility] Leukocyte Wqvuqwru7954-68-87 18:05:00* Test Item Value Reference Range Interpretation Comments Urine Leukocyte Esterase (test code = 39405-0) NEGATIVE NEGATIV E [facility] Jkpyedj0565-21-78 18:05:00* Test Item Value Reference Range Interpretation Comments Urine Nitrite (test code = 77407-6) NEGATIVE NEGATIVE [facility] Qzsyxop6546-29-99 18:05:00* Test Item Value Reference Range Interpretation Comments Urine Protein (test code = 91799-5) 3+ NEGATIVE H [facility] Glucose (UA)2018-10-05 18:05:00* Test Item Value Reference Range Interpretation Comments Urine Glucose (UA) (test code = 77335-7) NEGATIVE NEGATIVE [facility] Nsyfyvu4787-36-70 18:05:00* Test Item Value Reference Range Interpretation Comments Urine Ketones (test code = 05873-2) NEGATIVE NEGATIVE [facility] Gvstbxpsagty2016-46-55 18:05:00* Test Item Value Reference Range Interpretation Comments Urine Urobilinogen (test code = 72143-6) 0.2 0.2-1 [facility] Yqaezyfeg8748-07-74 18:05:00* Test Item Value Reference Range Interpretation Comments Urine Bilirubin (test code = 1977-8) NEGATIVE NEGATIVE [facility] [id number] 18:05:00* Test Item Value Reference Range Interpretation Comments Urine Blood (test code = 07718-9) 3+ NEGATIVE [facility] TexasWhite Blood Ootzy4633-68-30 18:04:00* Test Item Value Reference Range Interpretation Comments White Blood Count (test code = 6690-2) 6.60 4.8-10.8 [facility] Blood [id number] 18:04:00* Test Item Value Reference Range Interpretation Comments Red Blood Count (test code = 789-8) 4.56 4.3-5.7 [facility] TexasHemoglobin2019-07-14 18:04:00* Test Item Value Reference Range Interpretation Comments Hemoglobin (test code = 16901-3) 13.2 14.0-18.0 L [facility] TexasHematocrit2019-07-14 18:04:00* Test Item Value Reference Range Interpretation Comments Hematocrit (test code = 4544-3) 38.9 38.2-49.6 [facility]Mean Corpuscular Logaem8645-16-84 18:04:00* Test Item Value Reference Range Interpretation Comments Mean Corpuscular Volume (test code = 787-2) 85.3 81-99 [facility] Corpuscular Ijtksjfnew7918-64-78 18:04:00* Test Item Value Reference Range Interpretation Comments Mean Corpuscular Hemoglobin (test code = 785-6) 28.9 28-32 [facility]Mean Corpuscular Hemoglobin Concent 2018-10-05 18:04:00* Test Item Value Reference Range Interpretation Comments Mean Corpuscular Hemoglobin Concent (test code = 786-4) 33.9 31-35 [facility] TexasRed Cell Distribution [id number] 18:04:00* Test Item Value Reference Range Interpretation Comments Red Cell Distribution Width (test code = 21174-9) 13.2 11.7 -14.4 [facility] TexasPlatelet Xaekz9202-56-89 18:04:00* Test Item Value Reference Range Interpretation Comments Platelet Count (test code = 777-3) 255 140-360 [facility] TexasNeutrophils (%) (Auto)2018-10-05 18:04:00 * Test Item Value Reference Range Interpretation Comments Neutrophils (%) (Auto) (test code = 33590-4) 69.0 38.7-80.0 [facility] TexasLymphocytes (%) (Auto)2018-10-05 18:04:00 * Test Item Value Reference Range Interpretation Comments Lymphocytes (%) (Auto) (test code = 736-9) 20.8 18.0-39.1 [facility] TexasMonocytes (%) (Auto)2018-10-05 18:04:00* Test Item Value Reference Range Interpretation Comments Monocytes (%) (Auto) (test code = 5905-5) 7.3 4.4-11.3 [facility]Eosinophils (%) (Auto)2018-10-05 18:04:00 * Test Item Value Reference Range Interpretation Comments Eosinophils (%) (Auto) (test code = 713-8) 2.1 0.0-6.0 [facility]Basophils (%) (Auto)2018-10-05 18:04:00* Test Item Value Reference Range Interpretation Comments Basophils (%) (Auto) (test code = 706-2) 0.5 0.0-1.0 [facility] TexasIM GRANULOCYTES %2018-10-05 18:04:00* Test Item Value Reference Range Interpretation Comments IM GRANULOCYTES % (test code = IM GRANULOCYTES %) 0.3 0.0- 1.0 [facility] TexasNeutrophils # (Auto)2018-10-05 18:04:00* Test Item Value Reference Range Interpretation Comments Neutrophils # (Auto) (test code = 751-8) 4.6 2.1-6.9 [facility] TexasLymphocytes # (Auto)2018-10-05 18:04:00* Test Item Value Reference Range Interpretation Comments Lymphocytes # (Auto) (test code = 96901-9) 1.4 1.0-3.2 [facility] TexasMonocytes # (Auto)2018-10-05 18:04:00* Test Item Value Reference Range Interpretation Comments Monocytes # (Auto) (test code = 742-7) 0.5 0.2-0.8 [facility] TexasEosinophils # (Auto)2018-10-05 18:04:00* Test Item Value Reference Range Interpretation Comments Eosinophils # (Auto) (test code = 711-2) 0.1 0.0-0.4 [facility]Basophils # (Auto)2018-10-05 18:04:00* Test Item Value Reference Range Interpretation Comments Basophils # (Auto) (test code = 704-7) 0.0 0.0-0.1 [facility] TexasAbsolute Immature Granulocyte (auto 2018-10-05 18:04:00* Test Item Value Reference Range Interpretation Comments Absolute Immature Granulocyte (auto (kaden t code = Absolute Immature Granulocyte (auto) 0.02 0-0.1 [facility]
[2019-12-30 14:15] VITALS: BP 136/87
[2019-12-30] MEDS ORDERED: MORPHINE SULFATE 2 MG/ML SYR 1ML ONE (14:19)
[2019-12-30 14:29] LABS: BASOPHILS % 0.1 % (0.0-1.0); EOSINOPHILS % 0.1 % (0.0-6.0); HEMATOCRIT 40.3 % (38.2-49.6); HEMOGLOBIN 13.1 g/dL (14.0-18.0); LYMPHOCYTES # (AUTO) 0.7 (1.0-3.2); LYMPHOCYTES % 6.9 % (18.0-39.1); MEAN CORPUSCULAR HEMOGLOBIN 29.4 pg (28-32); MEAN CORPUSCULAR HGB CONC 32.5 g/dL (31-35); MEAN CORPUSCULAR VOLUME 90.4 fL (81-99); MONOCYTES # (AUTO) 0.1 (0.2-0.8); MONOCYTES % 1.2 % (4.4-11.3); NEUTROPHILS # (AUTO) 9.2 (2.1-6.9); NEUTROPHILS % 91.3 % (38.7-80.0); PLATELET COUNT 224 x10e3/uL (140-360); RED BLOOD COUNT 4.46 x10e6/uL (4.3-5.7); RED CELL DISTRIBUTION WIDTH 13.7 % (11.7-14.4)
[2019-12-30 14:45] LABS: ANION GAP 14.4 mmol/L (8-16); CALCIUM 8.3 mg/dL (8.4-10.2); CREATININE, SERUM 1.19 mg/dL (0.72-1.25); POTASSIUM 4.4 mmol/L (3.5-5.1)
[2019-12-30 14:50] VITALS: BP 136/87
[2019-12-30 16:00] VITALS: BP 133/67
[2019-12-30 16:30] VITALS: BP 133/67
[2019-12-30] MEDS: DOCUSATE SODIUM 100 MG CAP PO SCH (17:21)
[2019-12-30] MEDS: SOD CHL 0.45%/POT CHL 20MEQ 1,000 ML IV SCH (17:22)
[2019-12-30 20:00] VITALS: BP 112/58
--- NOTE | 2019-12-30 20:06 | NUR ---
PATIENT IS RESTING IN BED IN STABLE CONDITION, NO SIGNS OF DISTRESS NOTED. IV FLUIDS ARE RUNNING AT ORDERED RATE AND PATIENT VOICES NO PAIN AT THIS TIME. CONTINUOUS BLADDER IRRIGATION IS PATENT AND FLOWING THROUGH ROCA CATHETER, BRIGHT RED URINE NOTED. BED IS IN LOWEST POSITION, BOTH SIDE RAILS ARE UP, CALL LIGHT IS WITHIN EASY REACH, WILL CONTINUE TO MONITOR.
[2019-12-30 20:07] VITALS: BP 112/58
[2019-12-31] VITALS (10 sets, daily range): BP systolic 99–126; BP diastolic 50–76
[2019-12-31] MEDS: SOD CHL 0.45%/POT CHL 20MEQ 1,000 ML IV SCH ×4 (02:55→23:27)
[2019-12-31 05:08] LABS: BASOPHILS % 0.1 % (0.0-1.0); EOSINOPHILS # (AUTO) 0.1 (0.0-0.4); EOSINOPHILS % 0.8 % (0.0-6.0); HEMATOCRIT 38.7 % (38.2-49.6); HEMOGLOBIN 13.3 g/dL (14.0-18.0); LYMPHOCYTES # (AUTO) 1.9 (1.0-3.2); LYMPHOCYTES % 20.2 % (18.0-39.1); MEAN CORPUSCULAR HEMOGLOBIN 31.1 pg (28-32); MEAN CORPUSCULAR HGB CONC 34.4 g/dL (31-35); MEAN CORPUSCULAR VOLUME 90.4 fL (81-99); MONOCYTES # (AUTO) 0.8 (0.2-0.8); MONOCYTES % 8.1 % (4.4-11.3); NEUTROPHILS # (AUTO) 6.6 (2.1-6.9); NEUTROPHILS % 70.4 % (38.7-80.0); PLATELET COUNT 206 x10e3/uL (140-360); RED BLOOD COUNT 4.28 x10e6/uL (4.3-5.7); RED CELL DISTRIBUTION WIDTH 14.3 % (11.7-14.4)
--- NOTE | 2019-12-31 05:09 | Operative Report ---
DATE OF PROCEDURE: 12/30/2019 SURGEON: Leighton Oneill MD PREOPERATIVE DIAGNOSES: 1. Obstructive benign prostatic hyperplasia. 2. Urinary tract infections. 3. Microhematuria. POSTOPERATIVE DIAGNOSES: 1. Obstructive benign prostatic hyperplasia. 2. Urinary tract infections. 3. Microhematuria. 4. Five bladder stones. 5. Bulbar urethral stricture. OPERATIONS PERFORMED: 1. Cystourethroscopy with calibration and dilation of bulbar urethral stricture (separate procedure performed for the diagnosis of stricture). 2. Cystourethroscopy with bilateral ureteral catheterization and retrograde ureteropyelography (separate procedure performed for the urinary tract infections and microhematuria). 3. Interpretation of retrograde ureteropyelography, no radiologist present. 4. Supervision of fluoroscopy, no radiologist present. 5. Cystolitholapaxy of five bladder stones (separately performed for stones). 6. Cystourethroscopy with transurethral resection of the prostate utilizing the plasma button electrode. ANESTHESIA: General. COMPLICATIONS: None. CLINICAL SUMMARY: Blu Garcia is an 79-year-old man, who over a year ago, had a very large bladder stone. His bladder stone was managed and the patient was recommended transurethral resection of the prostate. For numerous reasons, this procedure has not come to fruition, but the patient is finally arriving to the operating room for this procedure as recommended. He is aware of the risks of bleeding, infection, injury to adjacent structures, incontinence, impotence, retrograde ejaculation, need for additional procedures and elected to proceed. OPERATIVE PROCEDURE IN DETAIL: Informed consent was verified. The patient was properly identified, taken to the operating room, placed on the cystoscopy table in supine position. Anesthesia was uneventfully begun. The patient was then carefully and gently repositioned in the dorsal lithotomy position with all pressure points were padded. His genitalia were prepared and draped in usual sterile fashion. The cystoscope sheath with the visual obturator in place was atraumatically inserted into the patient's urethra. It was guided down the unremarkable distal urethra to the bulbar region where there was a short, but tight urethral stricture. We gently dilated across the stricture with the visual obturator. We then went through the sphincteric region, went through the prostate bed, which exhibited visually obstructing BPH. We entered the patient's bladder where there were five bladder stones noted. These recurrent bladder stones of course result of delaying this prostatectomy as the patient was cleared of all stone material a year ago. An 8-Faroese catheter was used to cannulate each ureter and retrograde ureteropyelograms were performed. Interpretation of retrograde ureteropyelography contrast was instilled in a retrograde fashion bilaterally. There were no tumors, no stones, and no diverticula. Unobstructed drainage was observed bilaterally fluoroscopically. The patient's urethral stricture was further dilated with Niesha sounds. Following dilation to 28-Faroese, we then placed the resectoscope sheath with the visual obturator into the patient's urethra, was guided down the urethra, brought into the patient's bladder. We evacuated the three smaller stones without any difficulty, but then had to use stone crushing forceps to manage the last two bladder stones. Once all stone material was withdrawn, we utilized the plasma button electrode to vaporize the prostate. First, we worked on bladder neck taking care to stay well away from the ureteral orifices bilaterally, then we vaporized the prostate from the bladder neck tube, but never passed the verumontanum and down the surgical capsule. Pinpoint electrocautery was utilized to achieve hemostasis. A wide open prostatic bed was achieved. The hemostasis was good. We placed a 24-Faroese Chris catheter and started on continuous bladder irrigation. The irrigant was pink. A belladonna and opium suppository were placed revealing a 50 g prostate, smooth and non-fluctuant without any nodules and the patient was uneventfully reversed from anesthesia and taken to recovery room in stable condition. There were no complications to the procedure. The patient tolerated the procedure well. Estimated blood loss was minimal. Explicit postop instructions were left on the patient's chart. We will admit the patient for continuous bladder irrigation, intravenous antibiotics, and postoperative care. Leighton MD Nino [place]/MODL /[id number] cc: Ed Cormier MD
[2019-12-31 05:28] LABS: ANION GAP 11.1 mmol/L (8-16); BLOOD UREA NITROGEN 19 mg/dL (7-26); BUN/CREATININE RATIO 17 (6-25); CARBON DIOXIDE 21 mmol/L (22-29); CHLORIDE 109 mmol/L (98-107); CREATININE, SERUM 1.12 mg/dL (0.72-1.25); EST GLOMERULAR FILTRATION RATE > 60 ML/MIN (60-); GLUCOSE 122 mg/dL (74-118); POTASSIUM 4.1 mmol/L (3.5-5.1); SODIUM 137 mmol/L (136-145)
--- NOTE | 2019-12-31 06:31 | NUR ---
H&P cc: prostatism HPI: 79yoM, PCP , with BPH, underwent TURP. Now recovering. Minimal pain. PMH: HTN, BPH, DM2, HLD, Pshx: prostate Allergies; see emr Fh/SH; ; no cigs meds; see MAR ROS: no f/c/s/N/V/D/BENDER/cp/sob/skin rash/confusion/vision changes v/s; revd PE tired appearing anicteric ns1s2; 3/6 systolic murmur mod bs ROCA with pink urine no leg edema skin dry n. affect a&ox3; lopez labs/meds revd A/P: BPH s/p TURP- irrigation and roca FACUNDO- improving with fluids HTN- improving Sysotlic murmur- f/u outpt; likely chronic Overweight- 1/2 portion sizes recommended BMI 27.5- as above DM2- hold orals; use ssi; hab1c/lipids Prop; scd dipso: cont care; f/u with urology RAYNE KWAN MD, PHD.
[2019-12-31] MEDS ORDERED: DEXTROSE 50% SYRINGE 50 ML IV PRN (06:45)
[2019-12-31 06:58] LABS: CHOL/HDL RATIO 3.6 (3.9-4.7)
[2019-12-31] MEDS: TAMSULOSIN HCL 0.4 MG CAP PO SCH ×2 (08:17→16:25)
[2019-12-31] MEDS: DOCUSATE SODIUM 100 MG CAP PO SCH ×2 (08:17→16:25)
[2019-12-31] MEDS: FINASTERIDE 5 MG TAB PO SCH (08:17)
[2019-12-31] MEDS: INSULIN REGULAR, HUMAN 100 UNIT/1 ML 3ML VIAL SQ SCH ×4 (09:45→20:40)
[2019-12-31] MEDS: CEFTRIAXONE SOD 1 GM/NS 50 ML 50 ML IV SCH (11:12)
--- NOTE | 2019-12-31 20:40 | NUR ---
PATIENT IS RESTING IN BED IN STABLE CONDITION AOX3, NO SIGNS OF DISTRESS NOTED. IV FLUIDS ARE RUNNING AT ORDERED RATE AND PATIENT VOICES NO PAIN AT THIS TIME. CONTINUOUS BLADDER IRRIGATION IS PATENT AND FLOWING THROUGH ROCA CATHETER, LIGHT PINK COLORED URINE NOTED. BED IS IN LOWEST POSITION, BOTH SIDE RAILS ARE UP, CALL LIGHT IS WITHIN EASY REACH, WILL CONTINUE TO MONITOR.
[2019-12-31] MEDS ORDERED: SIMVASTATIN 20 MG TAB PO SCH (21:00)
[2020-01-01] VITALS: BP 123/63
[2020-01-01 04:00] VITALS: BP 112/50
[2020-01-01 05:22] LABS: BASOPHILS % 0.4 % (0.0-1.0); EOSINOPHILS # (AUTO) 0.1 (0.0-0.4); EOSINOPHILS % 1.3 % (0.0-6.0); HEMATOCRIT 38.1 % (38.2-49.6); LYMPHOCYTES # (AUTO) 1.4 (1.0-3.2); LYMPHOCYTES % 16.5 % (18.0-39.1); MEAN CORPUSCULAR HEMOGLOBIN 30.4 pg (28-32); MEAN CORPUSCULAR HGB CONC 34.1 g/dL (31-35); MEAN CORPUSCULAR VOLUME 89.2 fL (81-99); MONOCYTES # (AUTO) 0.7 (0.2-0.8); MONOCYTES % 7.9 % (4.4-11.3); NEUTROPHILS # (AUTO) 6.2 (2.1-6.9); NEUTROPHILS % 73.7 % (38.7-80.0); PLATELET COUNT 186 x10e3/uL (140-360); RED BLOOD COUNT 4.27 x10e6/uL (4.3-5.7); RED CELL DISTRIBUTION WIDTH 13.7 % (11.7-14.4)
[2020-01-01 05:40] LABS: ANION GAP 11.9 mmol/L (8-16); BLOOD UREA NITROGEN 15 mg/dL (7-26); BUN/CREATININE RATIO 14 (6-25); CALCIUM 7.9 mg/dL (8.4-10.2); CARBON DIOXIDE 20 mmol/L (22-29); CHLORIDE 108 mmol/L (98-107); CREATININE, SERUM 1.07 mg/dL (0.72-1.25); EST GLOMERULAR FILTRATION RATE > 60 ML/MIN (60-); GLUCOSE 107 mg/dL (74-118); POTASSIUM 3.9 mmol/L (3.5-5.1); SODIUM 136 mmol/L (136-145)
--- NOTE | 2020-01-01 07:00 | NUR ---
BEDSIDE SHIFT REPORT RECEIVED PT IN STABLE CONDITION DENIES PAIN AT THIS TIME, UPDATED ON POC VOICED UNDERSTANDING, IVF INFUSING TO L FA 20G NO SS OF INFILTRATION NOTED, ROCA TO BSD WITH CBI INFUSING, NO OTHER CO VOICED CALL LIGHT IN REACH WILL CONTINUE TO MONTIOR
[2020-01-01] MEDS: INSULIN REGULAR, HUMAN 100 UNIT/1 ML 3ML VIAL SQ SCH ×3 (07:30→16:54)
[2020-01-01 07:42] VITALS: BP 106/83
[2020-01-01 07:56] VITALS: BP 106/83
--- NOTE | 2020-01-01 08:30 | NUR ---
IM- progress note O/N see below ROS: no f/c/s/N/V/D/BENDER/cp/sob/skin rash/confusion/vision changes v/s; revd PE tired appearing anicteric ns1s2; 3/6 systolic murmur mod bs ROCA with pink urine no leg edema skin dry n. affect a&ox3; lopez labs/meds revd A/P: BPH s/p TURP- irrigation and roca FACUNDO- improving with fluids HTN- improving Sysotlic murmur- f/u outpt; likely chronic Overweight- 1/2 portion sizes recommended BMI 27.5- as above DM2- hold orals; use ssi; hab1c/lipids Prop; scd dipso: cont care; f/u with urology 10-9 Hab1c/LDL 6.6/76; cont care; renal fn improving; continue irrigation; f/u urology RAYNE KWAN MD, PHD.
[2020-01-01] MEDS: SOD CHL 0.45%/POT CHL 20MEQ 1,000 ML IV SCH (08:39)
[2020-01-01] MEDS: DOCUSATE SODIUM 100 MG CAP PO SCH ×2 (08:40→18:14)
[2020-01-01] MEDS: FINASTERIDE 5 MG TAB PO SCH (08:40)
[2020-01-01] MEDS: TAMSULOSIN HCL 0.4 MG CAP PO SCH ×2 (08:40→18:14)
--- NOTE | 2020-01-01 08:53 | NUR ---
USED VIDEO INTERPERTOR FOR QUESTIONS PT WANTED TO ASK NURSE, VIDEO ID [id number](JHOAN)
[2020-01-01] MEDS ORDERED: ONDANSETRON HCL 4 MG ORAL DISINTEGRATING TAB PO PRN (10:00)
[2020-01-01] MEDS: CEFTRIAXONE SOD 1 GM/NS 50 ML 50 ML IV SCH (11:22)
[2020-01-01 11:26] VITALS: BP 134/55
--- NOTE | 2020-01-01 13:30 | NUR ---
ABELINO DC'D PER ORDERED PT TOLERATED WELL
--- NOTE | 2020-01-01 14:20 | NUR ---
PT VOIDED 100CC OF BARRETO URINE NO CLOTS NOTED
[2020-01-01 15:40] VITALS: BP 106/78
[2020-01-01] MEDS ORDERED: LEVOFLOXACIN250 MG PO (18:34)
[2020-01-01] MEDS ORDERED: TYLENOL # 31 EA PO (18:34)
[2020-01-01] MEDS ORDERED: TYLENOL325 M2 (18:34)
--- NOTE | 2020-01-07 06:01 | NUR ---
D/C summary Principal dx: BPH s/p TURP- irrigation and zhou FACUNDO- improving with fluids Secondary Dx: HTN- improving Sysotlic murmur- f/u outpt; likely chronic Overweight- 1/2 portion sizes recommended BMI 27.5- as above DM2- hold orals; use ssi; hab1c/lipids Prop; scd dipso: cont care; f/u with urology 10-9 Hab1c/LDL 6.6/76; cont care; renal fn improving; continue irrigation; f/u urology d/c home stable f/u pcp 2 days and urology 1 week d/c>35mins RAYNE KWAN MD, PHD.
== END 2020-01-01 19:00 | disposition home or self-care (01) | DRG 713 ==
LOC: OR 08:31 → PACU V 11:26 → MED/SURG 14:06
PROVIDERS: ADMIT Internal Medicine; ATTEND Internal Medicine
PROC: BT141ZZ Fluoroscopy of Kidneys, Ureters and Bladder using Low Osmolar Contrast (ICD-10-PCS; 2019-12-30)
PROC: 0TCB8ZZ Extirpation of Matter from Bladder, Via Natural or Artificial Opening Endoscopic (ICD-10-PCS; 2019-12-30)
PROC: 0V508ZZ Destruction of Prostate, Via Natural or Artificial Opening Endoscopic (ICD-10-PCS; principal; 2019-12-30 10:00)
PROC: 0T7D8ZZ Dilation of Urethra, Via Natural or Artificial Opening Endoscopic (ICD-10-PCS; 2019-12-30 10:00)
DX: N40.1 Benign prostatic hyperplasia with lower urinary tract symptoms (principal); N13.8 Other obstructive and reflux uropathy; N17.9 Acute kidney failure, unspecified; R01.1 Cardiac murmur, unspecified; R39.14 Feeling of incomplete bladder emptying; R35.1 Nocturia; R39.12 Poor urinary stream; I86.1 Scrotal varices; N28.1 Cyst of kidney, acquired; N43.3 Hydrocele, unspecified; Z11.59 Encounter for screening for other viral diseases; N21.0 Calculus in bladder; N35.912 Unspecified bulbous urethral stricture, male; I10 Essential (primary) hypertension; E66.3 Overweight; Z68.27 Body mass index [BMI] 27.0-27.9, adult; E11.9 Type 2 diabetes mellitus without complications; Z79.84 Long term (current) use of oral hypoglycemic drugs
CPT/HCPCS: 36415; 71046; 74420; 80048; 80061; 82948; 83036; 83735; 85025; 88300; 93005; 96372; C1758; J0696; J1100; J1580; J1817; J2001; J2250; J2270; J2405; J3010; J7030

== ENCOUNTER 2024-01-29 09:54 | Inpatient (IN) | payer MEDICARE, OTHER ==
[2024-01-29] VITALS (36 sets, daily range): BP systolic 78–117; BP diastolic 57–81; PULSE 100–120; RESP 15–29; TEMP 96.6–97.6; O2SAT 93–100
[~2024-01-29] VITALS: Ht 167.6 cm; Wt 77.3 kg
[~2024-01-29 09:54] MED LIST changes: +ASPIRIN EC81 MG PO; +ASPIRIN ENTERI325 MG PO; +FINASTERIDE5 MG PO; +LEVOFLOXACIN250 MG PO; +TYLENOL # 31 EA PO; +TYLENOL325 M2
[2024-01-29 10:58] LABS: BASOPHILS % 0.2 % (0.0-1.0); EOSINOPHILS % 0.3 % (0.0-6.0); HEMATOCRIT 35.2 % (38.2-49.6); HEMOGLOBIN 10.7 g/dL (14.0-18.0); LYMPHOCYTES # (AUTO) 1.6 (1.0-3.2); LYMPHOCYTES % 17.3 % (18.0-39.1); MEAN CORPUSCULAR HEMOGLOBIN 23.8 pg (28-32); MEAN CORPUSCULAR HGB CONC 30.4 g/dL (31-35); MEAN CORPUSCULAR VOLUME 78.2 fL (81-99); MONOCYTES # (AUTO) 0.4 (0.2-0.8); MONOCYTES % 4.6 % (4.4-11.3); NEUTROPHILS # (AUTO) 7.3 (2.1-6.9); NEUTROPHILS % 77.4 % (38.7-80.0); PLATELET COUNT 314 x10e3/uL (140-360); WHITE BLOOD COUNT 9.41 x10e3/uL (4.8-10.8)
[2024-01-29] MEDS: SODIUM CHLORIDE 0.9% 1000ML 1,000 ML IV STA (11:03)
[2024-01-29] MEDS: ONDANSETRON HCL INJ 2MG/ML 2ML 2 MG/ML VIAL IV STA (11:04)
[2024-01-29] MEDS: INSULIN REGULAR, HUMAN 100 UNIT/1 ML IV ONE (11:10)
[2024-01-29 11:16] LABS: CLARITY,URINE CLEAR (CLEAR); COLOR,URINE YELLOW (YELLOW); LEUKOCYTE ESTERASE ,URINE NEGATIVE (NEGATIVE); NITRITE,URINE NEGATIVE (NEGATIVE); PH,URINE 5.5 (5 - 7)
[2024-01-29 11:17] LABS: BILIRUBIN,URINE SMALL (NEGATIVE); GLUCOSE, URINE >=1000 (NEGATIVE); KETONES,URINE TRACE (NEGATIVE); PROTEIN,URINE DIPSTICK TRACE (NEGATIVE); URINE UROBILINOGEN 1 mg/dL (0.2 - 1)
[2024-01-29 11:19] LABS: INR 1.05; PROTHROMBIN TIME 14.2 seconds (11.9-14.5)
[2024-01-29 11:20] LABS: PARTIAL THROMBOPLASTIN TIME 22.7 seconds (23.8-35.5)
[2024-01-29 11:21] LABS: ALBUMIN 3.4 g/dL (3.5-5.0); ALBUMIN/GLOBULIN RATIO 0.9 (0.8-2.0); ANION GAP 26.8 mmol/L (8-16); BILIRUBIN,TOTAL 0.9 mg/dL (0.2-1.2); CALCIUM 9.1 mg/dL (8.4-10.2); CREATININE, SERUM 2.97 mg/dL (0.72-1.25); MAGNESIUM 2.5 MG/DL (1.3-2.1); TOTAL PROTEIN 7.1 g/dL (6.5-8.1)
[2024-01-29 11:26] LABS: BACTERIA,URINE MANY /HPF; EPITHELIAL CELLS,URINE FEW /LPF
[2024-01-29 11:27] LABS: POTASSIUM 2.8 mmol/L (3.5-5.1)
[2024-01-29 11:30] LABS: TROPONIN I 8.435 ng/mL (0-0.300)
[2024-01-29 11:47] LABS: INFLUENZAE A&B ANTIGEN (RAPID) NEGATIVE (NEGATIVE); RESPIRATORY SYNC. VIRUS NEGATIVE (NEGATIVE)
[2024-01-29 11:49] LABS: ABG HCO3 22 mmol/L (22-26); ABG PCO2 36 mmHg (35-45); ABG PH 7.39 (7.35-7.45); ABG PO2 72 mmHg (80-105); ABG TCO2 23
[2024-01-29] MEDS: POTASSIUM CHLORIDE 20 MEQ TAB CR PO STA (11:49)
[2024-01-29] MEDS: ASPIRIN 81 MG CHEW TAB PO ONE (11:49)
[2024-01-29] MEDS: POTASSIUM CHLORIDE 10MEQ/100ML 100 ML IV SCH (11:50)
[2024-01-29] MEDS ORDERED: HEPARIN SOD/DEXTROSE 5% 25000 UNIT/250 ML BAG IV SCH (12:00)
[2024-01-29] MEDS: HEPARIN SOD (PORCINE) 5,000 UNIT/ML VIAL IV ONE (12:13)
[2024-01-29] MEDS ORDERED: DEXTROSE 50% SYRINGE 50 ML IV PRN ×2 (12:15→15:00)
[2024-01-29] MEDS: HEPARIN 25,000 UNIT/D5W 250ML 250 ML IV SCH (12:16)
[2024-01-29 13:57] LABS: TROPONIN I 8.305 ng/mL (0-0.300)
[2024-01-29] MEDS ORDERED: NOREPINEPHRINE 8 MG/D5W 250 ML 250 ML ONE (14:44)
[2024-01-29] MEDS: NOREPINEPHRINE 8 MG/D5W 250 ML 250 ML IV SCH (15:14)
[2024-01-29] MEDS ORDERED: INSULIN LISPRO 100 UNIT/1 ML 3ML VIAL SQ SCH (16:30)
[2024-01-29] MEDS: SODIUM BICARBONATE 8.4% VIAL 50 ML in SODIUM CHLORIDE 0.45% 1,000 ML IV ONE (17:15)
[2024-01-29] MEDS: TAMSULOSIN HCL 0.4 MG CAP PO SCH (17:42)
[2024-01-29] MEDS: MUPIROCIN 2% OINT 22 GM TUBE TOP SCH (17:42)
[2024-01-29] MEDS ORDERED: LIPITOR20 MG PO (18:18)
[2024-01-29] MEDS ORDERED: PROTONIX40 MG/ML PO (18:18)
[2024-01-29] MEDS ORDERED: METOLAZONE5 MG PO (18:18)
[2024-01-29] MEDS ORDERED: ACARBOSE25 MG PO (18:23)
[2024-01-29] MEDS ORDERED: METOPROLOL SUCC25 MG PO (18:28)
[2024-01-29] MEDS ORDERED: CLOPIDOGREL75 MG PO (18:28)
[2024-01-30] VITALS (63 sets, daily range): BP systolic 57–153; BP diastolic 42–121; PULSE 101–121; RESP 13–31; TEMP 97.8–98.1; O2SAT 94–100
[2024-01-30 06:47] LABS: BASOPHILS % 0.1 % (0.0-1.0); EOSINOPHILS % 0.1 % (0.0-6.0); HEMATOCRIT 30.2 % (38.2-49.6); HEMOGLOBIN 9.4 g/dL (14.0-18.0); LYMPHOCYTES # (AUTO) 1.8 (1.0-3.2); LYMPHOCYTES % 14.9 % (18.0-39.1); MEAN CORPUSCULAR HEMOGLOBIN 23.5 pg (28-32); MEAN CORPUSCULAR HGB CONC 31.1 g/dL (31-35); MEAN CORPUSCULAR VOLUME 75.5 fL (81-99); MONOCYTES % 8.2 % (4.4-11.3); NEUTROPHILS # (AUTO) 9.2 (2.1-6.9); NEUTROPHILS % 76.2 % (38.7-80.0); PLATELET COUNT 181 x10e3/uL (140-360); RED CELL DISTRIBUTION WIDTH 16.2 % (11.7-14.4); WHITE BLOOD COUNT 12.06 x10e3/uL (4.8-10.8)
[2024-01-30] MEDS: SODIUM BICARBONATE 8.4% SYRING 50 ML in SODIUM CHLORIDE 0.45% 1,000 ML IV ONE (08:35)
[2024-01-30] MEDS: ASPIRIN 81 MG ENTERIC COATED PO SCH (08:40)
[2024-01-30] MEDS: CLOPIDOGREL BISULFATE 75 MG TAB PO SCH (08:40)
[2024-01-30 08:56] LABS: ALBUMIN 2.8 g/dL (3.5-5.0); ALBUMIN/GLOBULIN RATIO 0.8 (0.8-2.0); ANION GAP 20.7 mmol/L (8-16); BILIRUBIN,TOTAL 0.9 mg/dL (0.2-1.2); CALCIUM 8.7 mg/dL (8.4-10.2); CHOL/HDL RATIO 5.9 (3.9-4.7); CREATININE, SERUM 3.3 mg/dL (0.72-1.25); TOTAL PROTEIN 6.5 g/dL (6.5-8.1)
[2024-01-30 09:01] LABS: POTASSIUM 2.7 mmol/L (3.5-5.1)
[2024-01-30] MEDS: ONDANSETRON HCL INJ 2MG/ML 2ML 2 MG/ML VIAL IV PRN (09:02)
[2024-01-30 09:24] LABS: TROPONIN I 110.48 ng/mL (0-0.300)
[2024-01-30] MEDS: POTASSIUM CHLORIDE 20MEQ/100ML 100 ML IV ONE ×2 (11:01→13:30)
[2024-01-30] MEDS: INSULIN REGULAR, HUMAN 3ML VL 100 UNIT in SODIUM CHLORIDE 0.9% 99 ML IV SCH (12:12)
[2024-01-30 14:35] LABS: ANION GAP 21.2 mmol/L (8-16); CALCIUM 8.3 mg/dL (8.4-10.2); CREATININE, SERUM 3.38 mg/dL (0.72-1.25); MAGNESIUM 2.5 MG/DL (1.3-2.1)
[2024-01-30 14:38] LABS: POTASSIUM 3.2 mmol/L (3.5-5.1)
[2024-01-30] MEDS: SODIUM BICARBONATE 8.4% VIAL 150 ML in STERILE WATER IV SOLN 1,000 ML IV ONE (15:43)
[2024-02-10 06:51] LABS: ABG HCO3 22 mmol/L (22-26); ABG PCO2 36 mmHg (35-45); ABG PH 7.39 (7.35-7.45); ABG PO2 72 mmHg (80-105); ABG TCO2 23
== END 2024-01-30 18:20 | disposition short-term general hospital (02) | DRG 871 ==
LOC: ER 10:03 → ERHOLD 12:14 → ICU 13:55 → UNDODISIN 01-30 14:17
PROVIDERS: ADMIT Internal Medicine; ATTEND Internal Medicine
PROC: 05HM33Z Insertion of Infusion Device into Right Internal Jugular Vein, Percutaneous Approach (ICD-10-PCS; principal; 2024-01-29)
PROC: B543ZZA Ultrasonography of Right Jugular Veins, Guidance (ICD-10-PCS; 2024-01-29)
PROC: 3E033XZ Introduction of Vasopressor into Peripheral Vein, Percutaneous Approach (ICD-10-PCS; 2024-01-29)
PROC: 4A033R1 Measurement of Arterial Saturation, Peripheral, Percutaneous Approach (ICD-10-PCS; 2024-01-29)
PROC: 4A033R1 Measurement of Arterial Saturation, Peripheral, Percutaneous Approach (ICD-10-PCS; 2024-01-29)
DX: A41.9 Sepsis, unspecified organism (principal); I21.A1 Myocardial infarction type 2; R57.0 Cardiogenic shock; R65.21 Severe sepsis with septic shock; I50.33 Acute on chronic diastolic (congestive) heart failure; K72.00 Acute and subacute hepatic failure without coma; N17.9 Acute kidney failure, unspecified; I13.0 Hypertensive heart and chronic kidney disease with heart failure and stage 1 through stage 4 chronic kidney disease, or unspecified chronic kidney disease; E87.1 Hypo-osmolality and hyponatremia; E87.20 Acidosis, unspecified; E11.65 Type 2 diabetes mellitus with hyperglycemia; E11.22 Type 2 diabetes mellitus with diabetic chronic kidney disease; N18.30 Chronic kidney disease, stage 3 unspecified; Z79.84 Long term (current) use of oral hypoglycemic drugs; I25.10 Atherosclerotic heart disease of native coronary artery without angina pectoris; Z95.5 Presence of coronary angioplasty implant and graft; Z95.2 Presence of prosthetic heart valve; E87.6 Hypokalemia; E86.0 Dehydration; E83.42 Hypomagnesemia; D64.9 Anemia, unspecified; R00.0 Tachycardia, unspecified; I45.10 Unspecified right bundle-branch block; R47.81 Slurred speech; K21.9 Gastro-esophageal reflux disease without esophagitis; E78.5 Hyperlipidemia, unspecified; N40.0 Benign prostatic hyperplasia without lower urinary tract symptoms; Z87.440 Personal history of urinary (tract) infections; Z11.52 Encounter for screening for COVID-19; Z79.899 Other long term (current) drug therapy; Z79.82 Long term (current) use of aspirin; Z79.02 Long term (current) use of antithrombotics/antiplatelets
CPT/HCPCS: 36415; 70450; 71045; 76770; 80048; 80053; 80061; 81001; 82550; 82805; 82948; 83605; 83735; 83880; 84484; 85025; 85610; 85730; 87040; 87086; 87400; 87420; 93005; 93306; 94799; 99252; 99284; J0696; J1644; J2405; J2470; J2543; J3480; J7030; J7050; U0002